=== PATIENT | male | born 1960 | race Caucasian/White ===

== ENCOUNTER 2016-08-09 16:30 | Emergency (ER) | payer MEDICARE, OTHER ==
[~2016-08-09 16:30] MED LIST: D.O.S.100 MG PO; DIOV80 PO; FLOMAX4 PO; LIOR10 PO; LISINOPRIL40 MG PO; NORV10 PO; OXYIR5 MG PO; PRAV10 PO; PROTONIX PO; SENOKOTS PO
[2016-08-09 17:56] LABS: BASOPHILS 0.7 %; BASOPHILS ABSOLUTE 0.05 10/3/uL (0.0-0.16); EOSINOPHILS 3.8 %; EOSINOPHILS ABSOLUTE 0.27 10/3/uL (0.0-0.53); HEMATOCRIT 41.8 % (40.0-51.0); HEMOGLOBIN 14.2 g/dL (13.6-17.8); IMMATURE GRANULOCYTES 0.1 %; IMMATURE GRANULOCYTES ABSOLUTE 0.01 10/3/uL (0.0-0.11); LYMPHOCYTES ABSOLUTE 2.47 10/3/uL (0.67-4.30); MANUAL DIFF NO %; MEAN CORPUSCULAR HEMOGLOB 27.3 pg (26.0-34.0); MEAN CORPUSCULAR VOLUME 80.2 fL (80-100); MEAN PLATELET VOLUME 11.7 fL (9.2-13.0); MONOCYTES 10.3 %; MONOCYTES ABSOLUTE 0.73 10/3/uL (0.21-1.20); NEUTROPHILS 50.1 %; NEUTROPHILS ABSOLUTE 3.53 10/3/uL (2.02-8.40); PLATELET COUNT 288 10/3/uL (150-400); RBC DISTRIBUTION WIDTH 17.8 % (12.0-16.0); RED CELL COUNT 5.21 10/6/uL (4.7-6.1); WHITE BLOOD CELLS 7.1 10/3/uL (4.5-10.5)
[2016-08-09 17:59] LABS: INTERNATIONAL NORMAL RATI 1.1 UNITS (-); PROTIME (NOT ORD) 14.2 SEC (12.0-14.5)
[2016-08-09 18:00] LABS: PARTIAL THROMBO TIME 34.7 SEC (22.5-37.2)
[2016-08-09 18:02] LABS: BUN (BLOOD UREA NITROGEN) 9 MG/DL (6-23); CALCIUM, SERUM 8.4 MG/DL (8.5-10.4); CHEST PAIN PROFILE TAT 0 Hrs 00 Mins; CHLORIDE, SERUM 96 MMOL/L (96-112); CO2 (CARBON DIOXIDE) 30 MMOL/L (24-34); CREATININE 0.95 MG/DL (0.70-1.30); GFR AFRICAN AMERICAN 103 ML/MIN (>=60); GFR NON AFRICAN AMERICAN 89 ML/MIN (>=60); GLUCOSE, SERUM 89 MG/DL (60-99); TROPONIN I <0.02 NG/ML (<0.05)
[2016-08-09 18:04] LABS: POTASSIUM, SERUM 4.4 MMOL/L (3.5-5.3); SODIUM, SERUM 133 MMOL/L (135-148)
== END 2016-08-09 20:16 | disposition left against medical advice (07) ==
LOC: ER 16:30
PROVIDERS: Emergency Medicine
DX: Z53.21 Procedure and treatment not carried out due to patient leaving prior to being seen by health care provider (principal)
CPT/HCPCS: 80048; 83735; 84484; 85025; 85610; 85730; 93005